=== PATIENT | male | born 1995 | race Two or more races ===

== ENCOUNTER 2020-08-27 08:20 | Emergency (ER) | payer OTHER ==
[~2020-08-27] VITALS: Ht 165.1 cm; Wt 68.0 kg
[2020-08-27 08:24] VITALS: BP 138/71
== END 2020-08-27 08:59 ==
LOC: ER 08:26
DX: Z02.89 Encounter for other administrative examinations (principal); R45.1 Restlessness and agitation; F11.23 Opioid dependence with withdrawal